=== PATIENT | male | born 1990 | race Caucasian/White ===

== ENCOUNTER 2020-08-13 16:07 | Emergency (ER) | payer OTHER ==
[~2020-08-13] VITALS: Ht 172.7 cm; Wt 84.1 kg
[2020-08-13 18:10] VITALS: BP 138/95
== END 2020-08-13 18:46 | disposition home or self-care (01) ==
LOC: EMS 16:07
DX: Z02.89 Encounter for other administrative examinations (principal); F12.90 Cannabis use, unspecified, uncomplicated
CPT/HCPCS: 99283; 71046; 71046-TC